=== PATIENT | female | born 1975 | race Caucasian/White ===

== ENCOUNTER 2024-12-08 18:47 | Inpatient (IN) ==
[2024-12-08] MEDS ORDERED: IOPAMIDOL 100 ML BOTTLE IV ONE (18:48)
[2024-12-08] MEDS: ONDANSETRON 4 MG/2 ML VIAL IV ONE (19:30)
[2024-12-08] MEDS: KETOROLAC 15 MG/ML VIAL IV ONE (19:30)
[2024-12-08] MEDS: 0.9 % SODIUM CHLORIDE 1,000 ML IV ONE (19:30)
[2024-12-08 19:38] LABS: Basophils # (Auto) 0.02 K/mcL (0.00-0.30); Basophils % (Auto) 0.2 % (0.0-2.0); Eosinophils # (Auto) 0.05 K/mcL (0.00-0.70); Eosinophils % (Auto) 0.5 % (0.0-7.0); Hematocrit 46.1 % (34.1-44.9); Lymphocytes # (Auto) 1.33 K/mcL (1.50-4.80); Lymphocytes % (Auto) 14.5 % (15.5-49.0); Mean Cell Volume 84.3 fL (80.0-100.0); Mean Corpuscular HGB Conc 32.5 g/dL (31.0-36.0); Mean Platelet Volume 9.6 fL (8.8-12.5); Monocytes # (Auto) 0.47 K/mcL (0.10-0.90); Monocytes % (Auto) 5.1 % (1.0-12.0); Neutrophils % (Auto) 79.6 % (38.0-78.0); Platelet Count 310 K/mcL (140-440); RBC 5.47 M/mcL (3.59-5.38); Red Cell Distribution Width 14.2 % (11.5-14.5); WBC 9.2 K/mcL (4.5-11.0)
[2024-12-08 19:59] LABS: ALT/SGPT 16 U/L (<40); AST/SGOT 24 U/L (<32); Albumin/Globulin Ratio 1.1 (1.0-2.3); Alkaline Phosphatase 113 U/L (39-117); Bilirubin,Total 0.4 mg/dL (0.1-1.0); Blood Urea Nitrogen 15 mg/dL (6-20); Calcium 10.5 mg/dL (8.6-10.4); Carbon Dioxide 25 mmol/L (22-30); Chloride 97 mmol/L (96-108); Globulin 3.6 gm/dL (2.2-3.7); Glomerular Filtration Rate 76; Glucose 152 mg/dL (70-105); Sodium 138 mmol/L (133-145)
[2024-12-08] MEDS: ONDANSETRON 4 MG/2 ML VIAL IV PRN (20:38)
[2024-12-08 20:58] LABS: INR 1.1 (0.9-1.1); Prothrombin Time 14.1 sec (11.9-14.5)
[2024-12-08] MEDS: 0.9 % SODIUM CHLORIDE 1,000 ML IV SCH ×2 (21:03→22:34)
[2024-12-08] MEDS: HYDROmorphone 1 MG/ML SYRINGE IV PRN (21:30)
[2024-12-08] MEDS: LIDOCAINE 2% URO-JET 10 ML JEL.PF.APP UR ONE (21:30)
[2024-12-08] MEDS: METOCLOPRAMIDE 10 MG/2 ML VIAL IV ONE (22:16)
[2024-12-09 05:28] LABS: Appearance,Urine CLEAR (Clear); Bilirubin,Urine Negative (Negative); Color,Urine YELLOW; Glucose,Urine (UA) Negative (Negative); Ketones,Urine 5 mg/dL (Negative); Leukocyte Esterase,Urine Negative /uL (Negative); Nitrate,Urine Negative (Negative); Protein,Urine Negative (Negative); Specific Gravity,Urine > 1.060 (1.000-1.035); Urine Blood Negative (Negative)
[2024-12-09 07:08] LABS: Basophils # (Auto) 0.02 K/mcL (0.00-0.30); Basophils % (Auto) 0.2 % (0.0-2.0); Eosinophils # (Auto) 0.13 K/mcL (0.00-0.70); Eosinophils % (Auto) 1.4 % (0.0-7.0); Hematocrit 41.5 % (34.1-44.9); Hemoglobin 13.3 g/dL (11.2-15.7); Mean Cell Volume 86.8 fL (80.0-100.0); Mean Platelet Volume 9.6 fL (8.8-12.5); Monocytes # (Auto) 0.66 K/mcL (0.10-0.90); Monocytes % (Auto) 7.3 % (1.0-12.0); Platelet Count 271 K/mcL (140-440); RBC 4.78 M/mcL (3.59-5.38); Red Cell Distribution Width 14.3 % (11.5-14.5); WBC 9.1 K/mcL (4.5-11.0)
[2024-12-09 07:17] LABS: ALT/SGPT 12 U/L (<40); AST/SGOT 20 U/L (<32); Albumin 3.4 gm/dL (3.2-5.2); Albumin/Globulin Ratio 1.2 (1.0-2.3); Alkaline Phosphatase 91 U/L (39-117); Bilirubin,Direct < 0.2 mg/dL (0-0.3); Bilirubin,Total 0.3 mg/dL (0.1-1.0); Blood Urea Nitrogen 16 mg/dL (6-20); Calcium 8.9 mg/dL (8.6-10.4); Carbon Dioxide 30 mmol/L (22-30); Chloride 102 mmol/L (96-108); Globulin 2.9 gm/dL (2.2-3.7); Glomerular Filtration Rate 87; Glucose 110 mg/dL (70-105); Lactate Dehydrogenase 172 U/L (135-225); Phosphorous 4.5 mg/dL (2.5-4.5); Potassium 3.5 mmol/L (3.3-5.1); Sodium 143 mmol/L (133-145); Triglycerides 82 mg/dL (<150); Uric Acid 4.7 mg/dL (2.5-8.0)
[2024-12-10] MEDS: PREGABALIN 100 MG CAPSULE PO SCH (09:39)
[2024-12-10] MEDS: DULoxetine 30 MG CAPSULE PO SCH (09:39)
[2024-12-10] MEDS: risperiDONE 1 MG TABLET PO SCH (09:40)
[2024-12-10] MEDS: METHYLNALTREXONE BROMIDE 12 MG/0.6 ML SYRINGE SQ SCH (09:40)
[2024-12-10] MEDS: ACETAMINOPHEN 1,000 MG/100 ML BAG IV SCH (10:04)
[2024-12-10] MEDS: MAGNESIUM HYDROXIDE 30 ML ORAL.SUSP PO SCH (17:45)
[2024-12-11] MEDS: MAGNESIUM CITRATE 300 ML ORAL.SOL PO SCH (17:28)
[2024-12-12] MEDS ORDERED: IOPAMIDOL 100 ML BOTTLE IV ONE (08:24)
[2024-12-12] MEDS ORDERED: MAGNESIUM CITRATE 300 ML ORAL.SOL PO SCH (09:00)
[2024-12-12] MEDS: BUPRENORPHINE/NALOXONE 4MG/1MG ORAL FILM SL ONE (11:21)
[2024-12-12] MEDS: NICOTINE 21 MG PATCH TOPICAL ONE (11:22)
[2024-12-13] MEDS ORDERED: BUPRENORPHINE/NALOXONE 4MG/1MG ORAL FILM SL SCH (09:00)
[2024-12-13] MEDS: BUPRENORPHINE/NALOXONE 4MG/1MG ORAL FILM SL SCH (09:30)
[2024-12-13] MEDS: NICOTINE 21 MG PATCH TOPICAL SCH (09:30)
== END 2024-12-13 19:25 | disposition home or self-care (01) | DRG 392 ==
LOC: ED 18:47 → MEDSUR 22:20
PROVIDERS: ADMIT Family Medicine Adult Medicine; ATTEND Family Medicine Adult Medicine